=== PATIENT | male | born 1980 | race Asian ===

== ENCOUNTER 2022-11-07 09:18 | Emergency (ER) | payer BC ==
[~2022-11-07] VITALS: Ht 172.7 cm; Wt 81.8 kg
[2022-11-07] MEDS ORDERED: PredniSONE 20 MG TABLET PO ONE (10:30)
[2022-11-07] MEDS ORDERED: PRED-554 PO (11:12)
[2022-11-07 11:20] VITALS: BP 110/88
== END 2022-11-07 11:22 | disposition home or self-care (01) ==
LOC: EMS 09:18
DX: L25.9 Unspecified contact dermatitis, unspecified cause (principal)
CPT/HCPCS: 99283; J7512